=== PATIENT | male | born 1955 | race Caucasian/White ===

== ENCOUNTER 2016-11-18 12:53 | Emergency (ER) | payer OTHER ==
[2016-11-18 13:01] VITALS: TEMP 97.7
--- NOTE | 2016-11-18 13:01 | CPEKG ---
Heart Rate: 62 RR Interval: 968 P-R Interval: 172 QRSD Interval: 94 QT Interval: 420 QTC Interval: 427 P Mounds: 75 QRS Mounds: 11 T Wave Mounds: 45 EKG Severity - NORMAL ECG - EKG Impression: SINUS RHYTHM Electronically Signed By: Mukund Hawley 18-Nov-2016 15:29:25
--- NOTE | 2016-11-18 13:09 | EDPHY ---
HPI/HX/ROS/PE/MDM Narrative: CHIEF COMPLAINT: Chest pressure, flu-like symptoms. HISTORY OF PRESENT ILLNESS: The patient is a 61-year-old male who presents from [place] for chest pressure. He has had flu-like symptoms for 10 days including fever, productive cough, shortness of breath, and fatigue. His fever subsided after a week and the cough has been improving. Yesterday his shortness of breath worsened while mowing the lawn and he began to wheeze. He has had intermittent chest congestion and feeling slightly short of breath for a week. Today at [place] he had an EKG that showed possible inferior changes. No recent fever, chills, palpitations, vomiting, diarrhea, urinary complaints, headache, lightheadedness. EMS administered nitroglycerin en route. He did get a flu shot this year. REVIEW OF SYSTEMS: Aside from elements discussed in the HPI, a comprehensive 10-point review of systems was reviewed and is negative. PAST MEDICAL HISTORY: Denies. SOCIAL HISTORY: , former smoker. VITAL SIGNS: Reviewed by me GENERAL: Well-developed, well-nourished, resting comfortably in no respiratory distress. HEENT: Atraumatic. Eyes: No icterus, no injection. Mouth: moist mucous membranes. No erythema or lesions. Neck: supple with no adenopathy. LUNGS: Clear to auscultation bilaterally, no wheezes, rhonchi or rales. Poor air movement. CARDIAC: Regular rate and rhythm, no rubs, murmurs or gallops. Distant heart sounds. ABDOMEN: Soft, nontender, nondistended, bowel sounds normal. BACK: No CVA tenderness. EXTREMITIES: No trauma. No edema. Range of motion is normal throughout. NEURO: Alert and oriented, grossly nonfocal. SKIN: Warm and dry, no rash. PSYCHIATRIC: Normal mentation, no agitation. Portions of this note were transcribed by a regional medical director. I personally performed a history, physical exam, medical decision making, and confirmed accuracy of information the transcribed note. ED Course: 61-year-old male with no previous cardiac history presents via EMS from [place] for chest pressure and EKG changes. He has had flu-like symptoms for the past 10 days including fever, productive cough, fatigue, and chest pressure. Yesterday while mowing the lawn he suddenly became more short of breath and wheezy. He presented to [place] today. They took an EKG and thought they noticed inferior changes and possible posterior/inferior infarcts so he was sent here. He is a non-smoker and has no history of diabetes. An IV was established and labs ordered including cardiac enzymes. On exam he has poor air movement and distant heart sounds. He has been given DuoNeb treatment for breathing. 324mg PO aspirin administered by EMS. His vitals are stable and his oxygen saturation is 98% on room air. 12-LEAD EKG: Please see the full report in [facility]. My interpretation: Normal sinus rhythm. No ischemic changes. Patient reports significant improvement in his symptoms of slight shortness of breath after the albuterol treatment. He does have a history of having asthma as a child. I independently viewed the patient's chest x-ray on the PACS system. My interpretation: bronchitis. Please see Imaging section for radiologist report. The patient's blood work is unremarkable. Troponin and BNP are negative. He will be discharged with a take-home Albuterol nebulizer and Azithromycin. He understands to follow up with his primary care provider. I discussed this plan with him and answered his questions. The differential diagnosis for the patient's chest pain included but was not limited to myocardial ischemia, pulmonary embolus, chest wall pain, pleural inflammation, and pulmonary infectious causes. - Data Points Imaging Results: Imaging Impressions Chest X-Ray 11/18/16 13:19 Impression: Left basilar subsegmental atelectasis versus minimal infiltrate versus scar. Laboratory Results: Laboratory Results 11/18/16 13:00 11/18/16 13:00 11/18/16 11/18/16 13:00 13:00 WBC 7.93 10^3/uL 10^3/uL (3.80-9.50) RBC 5.03 10^6/uL 10^6/uL (4.40-6.38) Hgb 15.2 g/dL g/dL (13.7-17.5) Hct 45.9 % % (40.0-51.0) MCV 91.3 fL fL (81.5-99.8) MCH 30.2 pg pg (27.9-34.1) MCHC 33.1 g/dL g/dL (32.4-36.7) RDW 12.8 % % (11.5-15.2) Plt Count 290 10^3/uL 10^3/uL (150-400) MPV 10.0 fL fL (8.7-11.7) Neut % (Auto) 60.5 % % (39.3-74.2) Lymph % (Auto) 27.5 % % (15.0-45.0) [place] % (Auto) 7.4 % % (4.5-13.0) Eos % (Auto) 3.3 % % (0.6-7.6) Baso % (Auto) 1.0 % % (0.3-1.7) Nucleat RBC Rel Count 0.0 % % (0.0-0.2) Absolute Neuts (auto) 4.80 10^3/uL 10^3/uL (1.70-6.50) Absolute Lymphs (auto) 2.18 10^3/uL 10^3/uL (1.00-3.00) Absolute Monos (auto) 0.59 10^3/uL 10^3/uL (0.30-0.80) Absolute Eos (auto) 0.26 10^3/uL 10^3/uL (0.03-0.40) Absolute Basos (auto) 0.08 10^3/uL 10^3/uL (0.02-0.10) Absolute Nucleated RBC 0.00 10^3/uL 10^3/uL (0-0.01) Immature Gran % 0.3 % % (0.0-1.1) Immature Gran # 0.02 10^3/uL 10^3/uL (0.00-0.10) Sodium 138 mEq/L mEq/L (134-144) Potassium 4.8 mEq/L mEq/L (3.5-5.2) Chloride 102 mEq/L mEq/L (97-110) Carbon Dioxide 27 mEq/l mEq/l (22-31) Anion Gap 9 mEq/L mEq/L (8-16) BUN 17 mg/dL mg/dL (7-23) Creatinine 1.0 mg/dL mg/dL (0.7-1.3) Estimated GFR > 60 Glucose 96 mg/dL mg/dL (70-100) Calcium 9.2 mg/dL mg/dL (8.5-10.4) Troponin I < 0.012 ng/mL ng/mL (0-0.034) NT-Pro-B Natriuret Pep 36 pg/mL pg/mL (0-125) Lipase 278.0 IU/L IU/L (23-300) Medications Given: Discontinued Medications Albuterol (Proventil Neb) 3 ml IH EDNOW ONE Stop: 11/18/16 13:22 Last Admin: 11/18/16 14:02 Dose: 3 ml Sodium Chloride (Ns) 500 mls @ 0 mls/hr IV ONCE ONE PRN Reason: As Directed Stop: 11/18/16 13:20 Last Admin: 11/18/16 14:02 Dose: 500 mls General Initial Vital Signs: Initial Vital Signs Temperature (C) 36.5 C 11/18/16 12:57 Heart Rate 60 11/18/16 12:57 Respiratory Rate 16 11/18/16 12:57 Blood Pressure 117/80 11/18/16 12:57 O2 Sat (%) 98 11/18/16 12:57 O2 Delivery Mode Room Air Allergies/Adverse Reactions: iodine Allergy (Verified 11/18/16 13:05) Home Medications: Medication Instructions Recorded AZITHROMYCIN [Z-PACK] 250 - 500 mg PO DAILY #6 tab 11/18/16 Albuterol Hfa Anes Only [Proair 2 puffs IH QID #1 mdi 11/18/16 Hfa Icu (*)] Departure - Departure Disposition: Home, Routine, Self-Care Clinical Impression: Bronchitis Dyspnea Qualifiers: Dyspnea type: unspecified Qualified Code(s): R06.00 - Dyspnea, unspecified Condition: Good Instructions: Acute Bronchitis (ED) Additional Instructions: Use the Albuterol MDI as instructed. Take Azithromycin as prescribed. Follow up with your primary care provider this week for reevaluation. Return to the emergency department for any serious worsening of condition. Referrals: [facility] [Provider Group] - As per Instructions Prescriptions: Albuterol Hfa Anes Only [Proair Hfa Icu (*)] 2 puffs IH QID #1 mdi AZITHROMYCIN [Z-PACK] 250 - 500 mg PO DAILY #6 tab Report Scribed for: Maya Rivers Report Scribed by: Avelino Bruno Date of Report: 11/18/16 Time of Report: 13:09
[2016-11-18] MEDS ORDERED: NS 500 ML IV ONE (13:19)
[2016-11-18] MEDS ORDERED: ALBUTEROL 3 ML DEYVIAL IH ONE (13:21)
[2016-11-18 13:26] LABS: % IMMATURE GRANULYOCYTES 0.3 % (0.0-1.1); ABSOLUTE IMMATURE GRANULOCYTES 0.02 10^3/uL (0.00-0.10); ADD DIFF? NO; ADD MORPH? NO; ADD SCAN? NO; ATYPICAL LYMPHOCYTE FLAG 10 (0-99); FRAGMENT RBC FLAG 0 (0-99); HEMATOCRIT 45.9 % (40.0-51.0); HEMOGLOBIN 15.2 g/dL (13.7-17.5); LEFT SHIFT FLG 0 (0-99); LIPEMIA HEMOLYSIS FLAG 80 (0-99); MEAN CELL HEMOGLOBIN 30.2 pg (27.9-34.1); MEAN CELL HEMOGLOBIN CONCENTR. 33.1 g/dL (32.4-36.7); MEAN CELL VOLUME 91.3 fL (81.5-99.8); PLATELET CLUMPS FLAG 0 (0-99); PLATELET COUNT 290 10^3/uL (150-400); RED BLOOD CELL COUNT 5.03 10^6/uL (4.40-6.38); RED CELL DISTRIBUTION WIDTH 12.8 % (11.5-15.2)
[2016-11-18 13:33] LABS: ANION GAP 9 mEq/L (8-16); CALCIUM 9.2 mg/dL (8.5-10.4); CARBON DIOXIDE 27 mEq/l (22-31); CHLORIDE 102 mEq/L (97-110); GLOMERULAR FILTRATION RATE > 60; GLUCOSE 96 mg/dL (70-100); POTASSIUM 4.8 mEq/L (3.5-5.2); SODIUM 138 mEq/L (134-144)
[2016-11-18 13:45] LABS: TROPONIN I < 0.012 ng/mL (0-0.034)
[2016-11-18 15:08] VITALS: BP 111/72; PULSE 73; RESP 14; O2SAT 97
== END 2016-11-18 15:08 | disposition home or self-care (01) ==
LOC: EDUNIT#
DX: J20.9 Acute bronchitis, unspecified (principal); Z87.891 Personal history of nicotine dependence